=== PATIENT | female | born 1950 | race Caucasian/White ===

== ENCOUNTER 2018-10-18 17:02 | Emergency (ER) | payer MEDICARE, OTHER ==
[2018-10-18] MEDS ORDERED: ONDANSETRON HCL IV 4 MG/2 ML VIAL IVP ONE (17:12)
[2018-10-18] MEDS ORDERED: 0.9 % SODIUM CHLORIDE 1,000 ML BAG IV ONE (17:12)
--- NOTE | 2018-10-18 17:22 | Emergency Department Record ---
History of Present Illness - General Chief complaint: Nausea, Vomiting, Diarrhea Stated complaint: LIGHT HEADED/VOMITING Time Seen by Provider: 10/18/18 17:12 Source: Patient, Family Mode of Arrival: Wheelchair Limitations: No limitations - History of Present Illness Initial comments: 68 yo female presents with nausea throughout the day. She developed vomiting with the nausea around 1:30pm. She feels lightheaded an dizzy. No syncope. No chest pain. No weakness or coordination changes. She was well yesterday. No diarrhea. No chest pain, abdominal or back pain. No fevers or chills. No recent illness. No blood in the vomit. She does feel very weak and shaky. She has underlying Parkinson's Disease as well. MD complaint: Nausea, Vomiting, Other (Lightheaded) Onset/Timin -: Hour(s) Description of Vomiting: Food contents, Watery Associated Abdominal Pain: No Radiation: None Consistency: Intermittent Improves with: None Worsens with: Vomiting Associated Symptoms: Nausea/vomiting - Related Data Home Medications Medication Instructions Recorded Confirmed Last Taken Carbidopa/Levodopa 25Mg/100Mg 1 tab PO DAILY 10/18/18 10/18/18 Unknown [Sinemet] Cyclobenzaprine HCl [Flexeril] 10 mg PO QHS 10/18/18 10/18/18 Unknown Diphenhydramine HCl [Benadryl] 25 mg PO QHS 10/18/18 10/18/18 Unknown Escitalopram Oxalate [Lexapro] 5 mg PO DAILY 10/18/18 10/18/18 Unknown Lisinopril 30 mg PO DAILY 10/18/18 10/18/18 Unknown Metoprolol Succinate [Toprol Xl] 25 mg PO DAILY 10/18/18 10/18/18 Unknown Previous Rx's Medication Instructions Recorded Ondansetron [Zofran Odt] 4 mg PO Q8H #10 tab.rapdis 10/18/18 Allergies Allergy/AdvReac Type Severity Reaction Status Date / Time No Known Drug Allergies Allergy Unverified 12/05/17 14:15 Travel Screening - Travel/Exposure Within Last 30 Days Have you traveled within the last 30 days?: No Review of Systems Constitutional: Reports: Chills, Malaise, Weakness. Denies: Fever Eyes: Denies: Eye discharge, Eye pain, Photophobia, Vision change ENT: Denies: Congestion, Throat pain Respiratory: Denies: Cough, Dyspnea Cardiovascular: Denies: Chest pain, Edema, Palpitations, Syncope Endocrine: Denies: Fatigue, Polydipsia, Polyuria Gastrointestinal: Reports: Nausea, Vomiting. Denies: Abdominal pain, Constipation, Diarrhea, Hematemesis, Melena Genitourinary: Denies: Dysuria Musculoskeletal: Denies: Arthralgia, Back pain, Myalgia Skin: Denies: Bruising, Change in color, Rash Neurological: Reports: Tremors, Vertigo, Weakness ("all over"). 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 - NEURO Hx Neuro Disorders: Yes Hx Parkinson's Disease: Yes Hx Seizures: Yes (As a child) - GI Hx GI Disorders: No - Hx Genitourinary Disorders: No - ENDOCRINE Hx Endocrine Disorders: No Hx Diabetes: No Hx Thyroid Disease: No - MUSCULOSKELETAL Hx Musculoskeletal Disorders: Yes Hx Arthritis: Yes (bilateral hands) Comment:: TMJ - PSYCH Hx Psych Problems: Yes Hx Anxiety: Yes - HEMATOLOGY/ONCOLOGY Hx Hematology/Oncology Disorders: No Family Medical History Any Significant Family History?: Yes Hx Diabetes: Mother Hx Heart Disease: Mother Hx HTN: Father Physical Exam - General General Appearance: Alert, Oriented x3, Cooperative, No acute distress Limitations: No limitations - Head Head exam: Atraumatic, Normal inspection - Eye Eye exam: Normal appearance, PERRL, EOMI. negative: Conjunctival injection, Nystagmus - ENT ENT exam: Normal exam, Mucous membranes moist Ear exam: Normal external inspection Nasal Exam: Normal inspection Mouth exam: Normal external inspection - Neck Neck exam: Normal inspection - Respiratory Respiratory exam: Normal lung sounds bilaterally. negative: Respiratory distress - Cardiovascular Cardiovascular Exam: Regular rate, Normal rhythm, Normal heart sounds Peripheral Pulses: 2+: Radial (R), Radial (L) - GI/Abdominal GI/Abdominal exam: Soft. negative: Tenderness - Rectal Rectal exam: Deferred - exam: Deferred - Extremities Extremities exam: Normal inspection - Back Back exam: Denies: CVA tenderness (R), CVA tenderness (L) - Neurological Neurological exam: Alert, CN II-XII intact, Oriented X3. negative: Altered, Motor sensory deficit - Psychiatric Psychiatric exam: Anxious. negative: Agitated - Skin Skin exam: Dry, Intact, Normal color, Warm Course Vital Signs 10/18/18 17:11 Pulse Rate 94 H Respiratory 20 Rate Blood Pressure 194/110 Pulse Ox 99 - Reevaluation(s) Reevaluation #1: EKG 17:32 Limitations due to artifact from her Parkinson's tremor. NSR rate is 73, intervals normal, axis L, ST no obvious ST changes with the limitations of the tremor. I do not think this is atrial flutter given her significant tremor. 10/18/18 17:39 10/18/18 18:02 No significant changes on the CBC or CMP 10/18/18 18:18 On recheck the patient is feeling significantly better and requests juice. 10/18/18 18:59 The nausea has resolved. The patient tolerated PO without any difficulty. She is now asymptomatic and ready for DC We discussed reasons to return to the ED, home care and follow up Medical Decision Making - Lab Data Result diagrams: 10/18/18 17:20 10/18/18 17:20 Disposition Disposition: Discharge Clinical Impression: Nausea and vomiting Qualifiers: Vomiting type: unspecified Vomiting Intractability: non-intractable Qualified Code(s): R11.2 - Nausea with vomiting, unspecified Disposition: Home, Self-Care Condition: (1) Good Instructions: Acute Nausea and Vomiting (ED) Additional Instructions: Return to the ED if the nausea and vomiting return Return sooner if you have any other associated symptoms or concerns Call your doctor for close follow up and recheck first of the week Prescriptions: Ondansetron [Zofran Odt] 4 mg PO Q8H #10 tab.rapdis Forms: Patient Portal Access Time of Disposition: 19:02 Quality - Quality Measures Quality Measures: N/A - Blood Pressure Screening Does Patient Have Any of the Following: Active Dx of HTN Blood Pressure Classification: Hypertensive Reading Systolic Measurement: 194 Diastolic Measurement: 110 Screening for High Blood Pressure: Patient Exclusion, Hx of HTN [G9744]
[2018-10-18 17:29] LABS: BASO % 0.4 % (0-6); EOS % 2.4 % (0-6); HEMOGLOBIN 11.4 gm/dl (11.6-16.0); LYMPH % 34.4 % (16-45); MEAN CELL VOLUME 91.2 fl (81-97); MEAN CORPUSCULAR HEMOGLOBIN 30.5 pg (27-33); MEAN CORPUSCULAR HGB CONC 33.5 g/dl (32-36); MEAN PLATELET VOLUME 9.1 fl (7.4-10.4); MONO % 7.8 % (0-9); PLATELET COUNT 331 K/uL (130-400); RED BLOOD COUNT 3.73 M/uL (3.80-5.40); RED CELL DISTRIBUTION WIDTH 12.1 % (11.5-14.5); WHITE BLOOD COUNT W/O DIFF 9.2 K/uL (4.2-12.2)
[2018-10-18 17:40] LABS: BLOOD UREA NITROGEN 15 mg/dL (8-23); CREATININE 0.7 mg/dL (0.5-0.9); EST GLOMERULAR FILTRATION RATE > 60 mL/min
[2018-10-18 17:41] LABS: TOTAL PROTEIN 7.7 g/dL (6.6-8.7)
[2018-10-18 17:43] LABS: GLUCOSE,RANDOM 130 mg/dL (74-109)
[2018-10-18 17:46] LABS: ALB/GLOB RATIO 1.6 (1.1-1.8); ALBUMIN 4.7 g/dL (4.0-5.0); ALKALINE PHOSPHATASE 109 U/L (35-104); ALT/SGPT < 5 U/L (<33); AST/SGOT 14 U/L (10.0-35.0)
[2018-10-18] MEDS ORDERED: ONDANSETRON 4 MG ODT TABLET SL ONE (18:59)
== END 2018-10-18 19:14 | disposition home or self-care (01) ==
LOC: ER 17:02
DX: R11.2 Nausea with vomiting, unspecified (principal); R19.7 Diarrhea, unspecified; R42 Dizziness and giddiness; I10 Essential (primary) hypertension; G20 Parkinson's disease
CPT/HCPCS: 99284 ×2; 96374; 85025; 80053; 93005; 93010; J2405; J7030

== ENCOUNTER 2018-10-23 17:25 | Emergency (ER) | payer MEDICARE, OTHER ==
--- NOTE | 2018-10-23 17:51 | Emergency Department Record ---
History of Present Illness - General Chief Complaint: Abdominal Pain Stated Complaint: ABDOMINAL PAIN Time Seen by Provider: 10/23/18 17:38 Source: Patient, RN Mode of Arrival: Ambulatory - History of Present Illness Initial Comments: patient has abdominal pain and no BM since 6 days ago and xrays possible volulus and seen in our ED 5 days ago and also seen in [facility] and sent to the ED today. xrays done by [facility] with possible sigmoid volvulus and rad recommended a CT scan. MD Complaint: Abdominal pain Onset/Timin -: Days(s) Location: LLQ Severity: Moderate Severity scale (1-10): 1 Quality: Aching, Cramping, Fullness - Related Data Home Medications Medication Instructions Recorded Confirmed Last Taken Docusate Sodium [Colace] 100 mg PO BID 10/23/18 10/23/18 1 Day Ago ~10/22/18 Previous Rx's Medication Instructions Recorded Ondansetron [Zofran Odt] 4 mg PO Q8H #10 tab.rapdis 10/18/18 Allergies Allergy/AdvReac Type Severity Reaction Status Date / Time No Known Drug Allergies Allergy Verified 10/23/18 17:33 Travel Screening - Travel/Exposure Within Last 30 Days Have you traveled within the last 30 days?: No - Travel/Exposure Within Last Year Have you traveled outside the [place] in the last year?: No - Additonal Travel Details Have you been exposed to anyone with a communicable illness?: No - Travel Symptoms Symptom Screening: None Review of Systems Reviewed: No additional complaints except as noted below Constitutional: Reports: As per HPI. Denies: Chills, Fever, Malaise, Night sweats, Weakness, Weight change Eyes: Reports: As per HPI. Denies: Eye discharge, Eye pain, Photophobia, Vision change ENT: Reports: As per HPI. Denies: Congestion, Dental pain, Ear pain, Epistaxis , Hearing loss, Throat pain Respiratory: Reports: As per HPI. Denies: Cough, Dyspnea, Hemoptysis, Stridor, Wheezes Cardiovascular: Reports: As per HPI. Denies: Arrhythmia, Chest pain, Dyspnea on exertion, Edema, Murmurs, Orthopnea, Palpitations, Paroxysmal nocturnal dyspnea, Rheumatic Fever, Syncope Endocrine: Reports: As per HPI. Denies: Fatigue, Heat or cold intolerance, Polydipsia, Polyuria Gastrointestinal: Reports: As per HPI, Abdominal pain. Denies: Constipation, Diarrhea, Hematemesis, Hematochezia, Melena, Nausea, Vomiting Genitourinary: Reports: As per HPI. Denies: Abnormal menses, Discharge, Dyspareunia, Dysuria, Frequency, Hematuria, Incontinence, Retention, Urgency Musculoskeletal: Reports: As per HPI. Denies: Arthralgia, Back pain, Gout, Joint swelling, Myalgia, Neck pain Skin: Reports: As per HPI. Denies: Bruising, Change in color, Change in hair/ nails, Lesions, Pruritus, Rash Neurological: Reports: As per HPI. Denies: Abnormal gait, Confusion, Headache, Numbness, Paresthesias, Seizure, Tingling, Tremors, Vertigo, Weakness Psychiatric: Reports: As per HPI. Denies: Anxiety, Auditory hallucinations, Depression, Homicidal thoughts, Suicidal thoughts, Visual hallucinations Hematological/Lymphatic: Reports: As per HPI. 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 - NEURO Hx Neuro Disorders: Yes Hx Parkinson's Disease: Yes Hx Seizures: Yes (As a child) - GI Hx GI Disorders: No - Hx Genitourinary Disorders: No - ENDOCRINE Hx Endocrine Disorders: No Hx Diabetes: No Hx Thyroid Disease: No - MUSCULOSKELETAL Hx Musculoskeletal Disorders: Yes Hx Arthritis: Yes (bilateral hands) Comment:: TMJ - PSYCH Hx Psych Problems: Yes Hx Anxiety: Yes - HEMATOLOGY/ONCOLOGY Hx Hematology/Oncology Disorders: No Family Medical History Any Significant Family History?: Yes Hx Diabetes: Mother Hx Heart Disease: Mother Hx HTN: Father Physical Exam - General General Appearance: Alert, Oriented x3, Cooperative, No acute distress - Head Head exam: Normal inspection - Eye Eye exam: Normal appearance, PERRL Pupils: Normal accommodation - ENT ENT exam: Normal exam, Mucous membranes moist, Normal external ear exam, Normal orophraynx, TM's normal bilaterally Ear exam: Normal external inspection. negative: External canal tenderness Nasal Exam: Normal inspection. negative: Discharge, Sinus tenderness Mouth exam: Normal external inspection, Tongue normal Teeth exam: Normal inspection. negative: Dental caries Throat exam: Normal inspection. negative: Tonsillar erythema, Tonsillar exudate - Neck Neck exam: Normal inspection, Full ROM. negative: Tenderness - Respiratory Respiratory exam: Normal lung sounds bilaterally. negative: Respiratory distress - Cardiovascular Cardiovascular Exam: Regular rate, Normal rhythm, Normal heart sounds - GI/Abdominal GI/Abdominal exam: Soft, Normal bowel sounds. negative: Tenderness - Rectal Rectal exam: Heme (-) stool, Other (no fecal impaction and no stool in rectum) - exam: Deferred - Extremities Extremities exam: Normal inspection, Full ROM, Normal capillary refill. negative: Tenderness - Back Back exam: Reports: Normal inspection, Full ROM. Denies: Muscle spasm, Rash noted, Tenderness - Neurological Neurological exam: Alert, Normal gait, Oriented X3, Reflexes normal - Psychiatric Psychiatric exam: Normal affect, Normal mood - Skin Skin exam: Dry, Intact, Normal color, Warm Course Vital Signs 10/23/18 17:27 Temperature 98.2 F Pulse Rate 90 Respiratory 20 Rate Blood Pressure 164/102 Pulse Ox [address] Dickson and he wants her transferred to [facility] ED for evaluation by GI for a stat colonoscopy and surgery evaluation - Reevaluation(s) Reevaluation #1: discussed case with Dr. Vargas ED physician at [facility] and will transfer to [facility] ED 10/23/18 18:42 Medical Decision Making - Data Complexity MDM Data: X-Ray Ordered and/or Reviewed (reviewed ) Disposition Clinical Impression: Sigmoid volvulus Disposition: Acute Care Hospital Transfer Condition: (2) Stable Forms: Patient Portal Access Time of Disposition: 18:45 Quality - Quality Measures Quality Measures: N/A - Blood Pressure Screening Does Patient Have Any of the Following: No Blood Pressure Classification: Hypertensive Reading Systolic Measurement: 164 Diastolic Measurement: 102 Screening for High Blood Pressure: < First Hypertensive BP, F/U Documented > [ [id number]] First Hypertensive Follow-up Interventions: Referral to alternative/primary care provider.
[2018-10-23] MEDS ORDERED: 0.9 % SODIUM CHLORIDE 1000ML 1,000 ML IV PRN (17:55)
[2018-10-23] MEDS ORDERED: ONDANSETRON HCL IV 4 MG/2 ML VIAL IVP ONE (19:06)
[2018-10-23] MEDS ORDERED: HYDROMORPHONE HCL 2 MG/ML VIAL IVP ONE (19:06)
== END 2018-10-23 20:19 | disposition short-term general hospital (02) ==
LOC: ER 17:25
DX: K56.2 Volvulus (principal); R14.0 Abdominal distension (gaseous); R10.32 Left lower quadrant pain
CPT/HCPCS: 74018; 80053; 82150; 83690; 85027; 96374; 96375; 99285; J2405

== ENCOUNTER 2019-06-10 09:54 | Emergency (ER) | payer MEDICARE, OTHER ==
[2019-06-10] MEDS ORDERED: ALPRAZOLAM 0.25 MG TABLET PO ONE (10:04)
--- NOTE | 2019-06-10 10:10 | Emergency Department Record ---
Anxiety - General Chief Complaint: Anxiety Stated Complaint: SRUTHI/ANXIETY Time Seen by Provider: 06/10/19 09:55 Source: Patient Mode of Arrival: Ambulatory Limitations: No limitations - History of Present Illness Initial Comments: 68 yo female presents with about 20-30 minutes of feeling very anxious and short of breath. She denies and chest pain. No pain with breathing. No edema. NO history of CAD, PE, Pulmonary disease. She was at home and started to feel anxiety. She quickly became short of breath. No sweating. She has a history of anxiety but denies a specific new life stress currently. Dr Feng is her PCP. MD Complaint: Anxiety, Shortness of breath Onset/Timin -: Hour(s) Symptoms: Dyspnea Place: Home Previous History of Same: Yes Severity: Moderate Quality: Intermittant Provoking factors: None known Improves With: Nothing Worsens With: Nothing Associated symptoms: Denies other symptoms - Related Data Home Medications: Home Medications Medication Instructions Recorded Confirmed Last Taken Cholecalciferol (Vitamin D3) 2,000 unit PO DAILY 06/10/19 06/10/19 06/10/19 [Vitamin D3] Previous Rx's Medication Instructions Recorded Ondansetron [Zofran Odt] 4 mg PO Q8H #10 tab.rapdis 10/18/18 Alprazolam [Xanax] 0.25 mg PO Q12H PRN #2 tablet 06/10/19 Allergies/Adverse Reactions: Allergies Allergy/AdvReac Type Severity Reaction Status Date / Time No Known Drug Allergies Allergy Verified 06/10/19 10:04 Travel Screening - Travel/Exposure Within Last 30 Days Have you traveled within the last 30 days?: No Review of Systems Constitutional: Denies: Chills, Fever, Malaise, Weakness Eyes: Denies: Eye discharge, Eye pain, Photophobia, Vision change ENT: Denies: Congestion, Ear pain, Epistaxis, Throat pain Respiratory: Reports: As per HPI, Dyspnea. Denies: Cough, Hemoptysis, Stridor, Wheezes Cardiovascular: Reports: Dyspnea on exertion. Denies: Arrhythmia, Chest pain, Edema, Orthopnea, Palpitations, Paroxysmal nocturnal dyspnea, Syncope Endocrine: Denies: Fatigue, Polydipsia, Polyuria Gastrointestinal: Denies: Abdominal pain, Diarrhea, Nausea, Vomiting Genitourinary: Denies: Dysuria, Frequency, Hematuria, Urgency Musculoskeletal: Denies: Arthralgia, Back pain, Neck pain Skin: Denies: Bruising, Change in color, Rash Neurological: Denies: Headache, Numbness, Tingling, Tremors, Vertigo, Weakness Psychiatric: Reports: Anxiety Hematological/Lymphatic: 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 - NEURO Hx Neuro Disorders: Yes Hx Parkinson's Disease: Yes Hx Seizures: Yes - GI Hx GI Disorders: No - Hx Genitourinary Disorders: No - ENDOCRINE Hx Endocrine Disorders: No Hx Diabetes: No Hx Thyroid Disease: No - MUSCULOSKELETAL Hx Musculoskeletal Disorders: Yes Hx Arthritis: Yes (bilateral hands) Comment:: TMJ - PSYCH Hx Psych Problems: Yes Hx Anxiety: Yes - HEMATOLOGY/ONCOLOGY Hx Hematology/Oncology Disorders: No Family Medical History Any Significant Family History?: Yes Hx Diabetes: Mother Hx Heart Disease: Mother Hx HTN: Father Physical Exam - General General Appearance: Alert, Oriented x3, Cooperative, No acute distress, Other (Tearful at times) Limitations: No limitations - Head Head exam: Atraumatic, Normal inspection - Eye Eye exam: Normal appearance, PERRL. negative: Conjunctival injection, Scleral icterus - ENT ENT exam: Normal exam, Mucous membranes moist Ear exam: Normal external inspection Nasal Exam: Normal inspection Mouth exam: Normal external inspection Throat exam: Normal inspection - Neck Neck exam: Normal inspection, Full ROM. negative: Tenderness - Respiratory Respiratory exam: Normal lung sounds bilaterally. negative: Accessory muscle use, Decreased breath sounds, Prolonged expiratory, Respiratory distress, Rhonchi, Stridor, Wheezes - Cardiovascular Cardiovascular Exam: Regular rate, Normal rhythm, Normal heart sounds - GI/Abdominal GI/Abdominal exam: Soft. negative: Tenderness - Rectal Rectal exam: Deferred - exam: Deferred - Extremities Extremities exam: Normal inspection. negative: Normal capillary refill, Te nderness - Back Back exam: Denies: CVA tenderness (R), CVA tenderness (L) - Neurological Neurological exam: Alert, Oriented X3 - Psychiatric Psychiatric exam: Anxious (tearful at times) - Skin Skin exam: Dry, Intact, Normal color, Warm Course Vital Signs 06/10/19 10:00 Temperature 98.0 F Pulse Rate 77 Respiratory 20 Rate Blood Pressure 171/86 Pulse Ox 98 - Reevaluation(s) Reevaluation #1: The patient was seen and examined She appeared initially relaxed and calm without signs of shortness of breath or increased work of breathing At times during the initial interview she did become tearful and short of breath but it resolved during out conversation 06/10/19 10:09 06/10/19 10:14 EKG #1: 10:05 Rate: 73 Rhythm: sinus [place]: L Intervals: normal ST segments: LVH NS flat t waves Prior: 06/10/19 12:01 The patient's symptoms have resolved after the Xanax The patient has a chronic stable anemia slightly improved D-Dimer is elevated at 0.68 CTA ordered. Patient was informed. 06/10/19 13:[address] is negative for acute process. 06/10/19 13:[address] of the abdomen and pelvis is negative for acute process. Gas noted throughout but no obstruction. She is asymptomatic in the abdomen Waiting for repeat Troponin. The symptoms are atypical and certainly have a component related to anxiety. She has remained asymptomatic since the Xanax 06/10/19 14:50 The repeat troponin is normal DC home to follow up with her PCP Medical Decision Making - Lab Data Result diagrams: 06/10/19 10:25 06/10/19 10:25 Disposition Disposition: Discharge Clinical Impression: Anxiety Dyspnea Qualifiers: Dyspnea type: unspecified Qualified Code(s): R06.00 - Dyspnea, unspecified Disposition: Home, Self-Care Condition: (1) Good Instructions: Dyspnea (ED), Anxiety (ED) Additional Instructions: Call your doctor for the next available follow up appointment with Ping Review this ER visit and the tests performed with your family doctor Return to the ER for a recheck if worse, any new concerns or questions Take the prescriptions provided as directed Prescriptions: Alprazolam [Xanax] 0.25 mg PO Q12H PRN #2 tablet PRN Reason: Anxiety Forms: Patient Portal Access Time of Disposition: 14:51 Quality - Quality Measures Quality Measures: N/A - Blood Pressure Screening Does Patient Have Any of the Following: Active Dx of HTN Blood Pressure Classification: Hypertensive Reading Systolic Measurement: 147 Diastolic Measurement: 79 Screening for High Blood Pressure: Patient Exclusion, Hx of HTN [G9744]
[2019-06-10 10:34] LABS: ABSOLUTE NEUTROPHIL COUNT 4.54; BASO % 0.4 % (0-6); EOS % 1.9 % (0-6); GRAN % 60.5 % (47-80); HEMATOCRIT 35.5 % (35.0-47.0); HEMOGLOBIN 11.4 gm/dl (11.6-16.0); LYMPH % 29.3 % (16-45); MEAN CELL VOLUME 93.7 fl (81-97); MEAN CORPUSCULAR HGB CONC 32.1 g/dl (32-36); MEAN PLATELET VOLUME 9.9 fl (7.4-10.4); MONO % 7.9 % (0-9); PLATELET COUNT 310 K/uL (130-400); RED BLOOD COUNT 3.79 M/uL (3.80-5.40); RED CELL DISTRIBUTION WIDTH 13.3 % (11.5-14.5); WHITE BLOOD COUNT W/O DIFF 7.5 K/uL (4.2-12.2)
[2019-06-10 10:44] LABS: BLOOD UREA NITROGEN 14 mg/dL (8-23); CREATININE 0.6 mg/dL (0.5-0.9); EST GLOMERULAR FILTRATION RATE > 60 mL/min
[2019-06-10 10:45] LABS: TOTAL PROTEIN 7.1 g/dL (6.6-8.7)
[2019-06-10 10:47] LABS: GLUCOSE,RANDOM 113 mg/dL (74-109)
[2019-06-10 10:49] LABS: ALT/SGPT < 5 U/L (<33)
[2019-06-10 10:50] LABS: ALB/GLOB RATIO 1.5 (1.1-1.8); ALBUMIN 4.3 g/dL (4.0-5.0); ALKALINE PHOSPHATASE 92 U/L (35-104); AST/SGOT 14 U/L (10.0-35.0)
[2019-06-10 10:52] LABS: PROTHROMBIN TIME (PATIENT) 10.3 SECONDS (9.5-12.1)
[2019-06-10 11:02] LABS: THYROID STIMULATING HORMONE 1.37 uIU/mL (0.270-4.20)
[2019-06-10] MEDS ORDERED: IPRATROPIUM/ALBUTEROL (0.5MG/3MG) NEB INH ONE (12:32)
[2019-06-10] MEDS ORDERED: KETOROLAC 30 MG/ML VIAL IVP ONE (12:32)
[2019-06-10 13:56] LABS: URINE APPEARANCE CLEAR; URINE BILIRUBIN NEGATIVE (NEGATIVE); URINE BLOOD NEGATIVE (NEGATIVE); URINE COLOR YELLOW; URINE GLUCOSE (UA) NEGATIVE (NEGATIVE); URINE KETONE NEGATIVE (NEGATIVE); URINE LEUKOCYTE ESTERASE SMALL (NEGATIVE); URINE NITRITE POSITIVE (NEGATIVE); URINE PROTEIN NEGATIVE (NEGATIVE); URINE UROBILINOGEN 0.2 E.U./dL (0.20 - 1.00)
[2019-06-10 14:09] LABS: URINE RBC NONE SEEN (NONE SEEN); URINE WBC 0 - 2 (0-2/hpf)
[2019-06-10 14:10] LABS: URINE BACTERIA 3+; URINE EPITHELIAL CELLS 0 - 2 (FEW)
--- NOTE | 2019-06-11 05:05 | CT ANGIOGRAM REPORT ---
EXAM: CTA OF THE THORAX WITH IV CONTRAST HISTORY: THIS IS A 68-YEAR-OLD FEMALE WITH DIFFICULTY IN BREATHING AND A DISTENDED ABDOMEN. ELEVATED D-DIMER. TECHNIQUE: CTA of the thorax was conducted after administration of IV contrast with reconstruction of the coronal and sagittal planes. Contrast utilized was 95 ml of Omnipaque 350. FINDINGS: No CT evidence of pulmonary artery embolism. The heart appears normal in size, no pericardial effusion. The aorta is normal in size. No aneurysm or dissection. The descending thoracic aorta is unremarkable. There is mild calcified atherosclerosis of the proximal LAD. The lungs are clear. No consolidation, pneumothorax or pleural effusion. No significant emphysematous change, evidence of CHF or significant emphysematous changes. Advanced degenerative changes of the right greater than left shoulders are present. No acute displaced fracture identified. The vertebral body heights and alignment are preserved, mild degenerative changes. Mild pectus excavatum. Moderate colonic gas is present. A few calcified lymph nodes are present, no adenopathy. IMPRESSION: NO CT EVIDENCE OF PULMONARY ARTERY EMBOLISM. NO AORTIC ANEURYSM, DISSECTION, OR ACUTE CARDIOPULMONARY PROCESS IDENTIFIED. JOB NUMBER: [id number] MTDD
--- NOTE | 2019-06-11 09:12 | CT SCAN REPORT ---
EXAM: CT OF THE ABDOMEN AND PELVIS WITH IV CONTRAST HISTORY: THIS IS A 68-YEAR-OLD FEMALE WITH DISTENDED ABDOMEN. TECHNIQUE: CT of the abdomen and pelvis was conducted after administration of IV contrast, with reconstruction of the coronal and sagittal planes. Contrast utilized was 95 ml of Omnipaque 350. Comparison: No prior exams available for comparison. FINDINGS: The lung bases are clear. Moderate colonic gas is present, minimal stool distally. Distal colonic anastomosis appears preserved. Mild rectal wall thickening is demonstrated, the rectum is collapsed with mild adjacent inflammatory fat stranding. No obvious obstructing mass identified. No small bowel obstruction. The liver, gallbladder, biliary system, spleen, adrenals, kidneys, and pancreas appear within normal limits. The aorta appears normal in size, no aneurysm or dissection. No significant or suspicious free fluid or free air identified. No obvious pelvic masses or significant adenopathy. Total right hip arthroplasty is present. Advanced facet degenerative changes noted. Advanced degenerative changes of the left hip are present. IMPRESSION: 1. MODERATE COLONIC GAS WITH MINIMAL STOOL, NO OBVIOUS OBSTRUCTING PROCESS IDENTIFIED. 2. MILD DISTAL RECTAL WALL THICKENING WITH MINIMAL ADJACENT FAT STRANDING CAN BE SEEN IN MILD PROCTITIS. 3. OTHERWISE, NO ACUTE INTRAABDOMINAL PATHOLOGIC PROCESS. JOB NUMBER: [id number] [facility]
== END 2019-06-10 15:01 | disposition home or self-care (01) ==
LOC: ER 09:54
DX: F41.9 Anxiety disorder, unspecified (principal); R06.00 Dyspnea, unspecified; R79.89 Other specified abnormal findings of blood chemistry; R14.0 Abdominal distension (gaseous); I10 Essential (primary) hypertension; G20 Parkinson's disease
CPT/HCPCS: 71275; 74177; 80053; 81001; 84443; 84484; 85025; 85379; 85610; 85730; 93005; 93010; 99284